=== PATIENT | male | born 1930 | race Asian ===

== ENCOUNTER 2016-11-26 02:25 | Inpatient (IN) | payer OTHER ==
[~2016-11-26] VITALS: Ht 172.7 cm; Wt 50.0 kg
[2016-11-26 02:40] VITALS: BP 189/97
[2016-11-26] MEDS ORDERED: HYDR100T79 PO (03:27)
[2016-11-26] MEDS ORDERED: FAMO-90 PO (03:27)
[2016-11-26] MEDS ORDERED: VITD1000 PO (03:27)
[2016-11-26] MEDS ORDERED: IRON65TA10 PO (03:27)
[2016-11-26] MEDS ORDERED: SODI650T2 PO (03:27)
[2016-11-26] MEDS ORDERED: ETHA400T24 PO (03:27)
[2016-11-26] MEDS ORDERED: VITB6I PO (03:27)
[2016-11-26] MEDS ORDERED: [UNRECOGNIZED DRUG - CODE] PO (03:27)
[2016-11-26] MEDS ORDERED: ASCO500T45 PO (03:27)
[2016-11-26] MEDS ORDERED: AMLO5TAB PO (03:27)
[2016-11-26] MEDS ORDERED: [UNRECOGNIZED DRUG - CODE] PO (03:27)
[2016-11-26] MEDS ORDERED: CARV6.25 PO (03:27)
[2016-11-26] MEDS ORDERED: RIFA150C2 PO (03:27)
[2016-11-26 04:00] VITALS: BP 139/75
[2016-11-26] MEDS ORDERED: NACL 0.9% 1,000 ML IV SCH ×2 (05:49→13:20)
[2016-11-26] MEDS ORDERED: ONDANSETRON 4 MG/2 ML VIAL IVP PRN (05:50)
[2016-11-26] MEDS ORDERED: LORazepam 2 MG/ML VIAL IVP PRN (05:50)
[2016-11-26] MEDS ORDERED: ACETAMINOPHEN 325 MG TAB PO PRN (05:50)
[2016-11-26] MEDS ORDERED: HYDROcodone/APAP 5/325 MG 1 TAB TAB PO PRN (05:50)
[2016-11-26] MEDS ORDERED: MORPHINE SULFATE 2 MG/ML SYR IVP PRN (05:50)
[2016-11-26] MEDS ORDERED: VANCOMYCIN PER PHARMACY MC PRN (06:00)
[2016-11-26] MEDS: ALBUTEROL 0.083% 2.5 MG/3 ML NEBU IH SCH ×3 (07:00→19:59)
[2016-11-26 07:18] LABS: BASOPHILS % (AUTO) 0.3 % (0.0-2.0); EOSINOPHILS # (AUTO) 0.5 K/uL (0-0.4); EOSINOPHILS % (AUTO) 4.7 % (0.0-4.0); HEMATOCRIT 27.8 % (36-52); LYMPHOCYTES # (AUTO) 0.8 K/uL (2.0-11.5); LYMPHOCYTES % (AUTO) 7.6 % (20.5-51.1); MEAN CORPUSCULAR HEMOGLOBIN 30 pg (27-31); MEAN CORPUSCULAR HGB CONC 32 g/dL (33-37); MEAN CORPUSCULAR VOLUME 93 fL (80-94); MONOCYTES # (AUTO) 0.9 K/uL (0.8-1.0); MONOCYTES % (AUTO) 8.3 % (1.7-9.3); NEUTROPHILS # (AUTO) 8.9 K/uL (1.8-7.7); NEUTROPHILS % (AUTO) 79.1 % (42.2-75.2); PLATELET COUNT (AUTO) 178 K/uL (140-450); RED BLOOD CELL COUNT(AUTO) 2.98 MIL/uL (4.20-6.10); RED CELL DISTRIBUTION WIDTH 14.1 % (11.6-13.7); WHITE BLOOD COUNT (AUTO) 11.1 K/uL (4.8-10.8)
[2016-11-26 07:27] LABS: ALANINE AMINOTRANSFERASE 11 U/L (12-78); ALBUMIN 2.3 g/dL (3.4-5.0); ALKALINE PHOSPHATASE 71 U/L (46-116); ANION GAP 16.5 (8-16); ASPARTATE AMINOTRANSFERASE 19 U/L (15-37); CARBON DIOXIDE 21.7 mmol/L (21-32); CHLORIDE 109 mmol/L (98-107); CREATININE 2.9 mg/dL (0.6-1.3); GLUCOSE 105 mg/dL (74-106); POTASSIUM 3.2 mmol/L (3.5-5.1); SODIUM SERUM 144 mmol/L (136-145); TOTAL BILIRUBIN 0.4 mg/dL (0.0-1.0); TOTAL PROTEIN, SERUM 7.2 g/dL (6.4-8.2); UREA NITROGEN, BLOOD 39 mg/dL (7-18)
[2016-11-26 07:38] LABS: CREATINE KINASE MB 0.4 ng/mL (0-3.6)
[2016-11-26 08:00] VITALS: BP 150/78
[2016-11-26] MEDS ORDERED: RIFAMPIN 300 MG CAP PO SCH ×2 (09:00→10:00)
[2016-11-26] MEDS ORDERED: AZITHROMYCIN 500 MG in DEXTROSE 5% 250 ML IV SCH (09:00)
[2016-11-26] MEDS ORDERED: PYRAZINAMIDE 500 MG TAB PO SCH (09:00)
[2016-11-26] MEDS ORDERED: ETHAMBUTOL 400 MG TAB PO SCH ×5 (09:00→10:05)
[2016-11-26] MEDS: ENOXAPARIN 40 MG/0.4 ML SYR SUBQ SCH (09:00)
[2016-11-26] MEDS ORDERED: FERROUS SULFATE 325 MG TABEC PO SCH (09:00)
[2016-11-26] MEDS: hydrALAZINE 25 MG TAB PO SCH ×3 (09:27→23:52)
[2016-11-26] MEDS: ASCORBIC ACID 500 MG TAB PO SCH (09:27)
[2016-11-26] MEDS: FAMOTIDINE 20 MG TAB PO SCH ×2 (09:28→21:10)
[2016-11-26] MEDS: ISONIAZID 100 MG TAB PO SCH (09:29)
[2016-11-26] MEDS: FERROUS SULFATE 325 MG TABEC PO SCH ×2 (09:30→21:10)
[2016-11-26] MEDS: amLODIPine 5 MG TAB PO SCH (09:30)
[2016-11-26] MEDS: PYRIDOXINE 50 MG TAB PO SCH (09:30)
[2016-11-26] MEDS: SODIUM BICARBONATE 650 MG TAB PO SCH (09:30)
[2016-11-26] MEDS: CARVEDILOL 6.25 MG TAB PO SCH ×2 (09:30→21:10)
[2016-11-26] MEDS: VITAMIN D 400 IU TAB PO SCH (09:31)
[2016-11-26] MEDS ORDERED: VANCOMYCIN 1GM/DEXT 5% PREMIX 200 ML IV SCH (10:00)
[2016-11-26] MEDS ORDERED: PATIENTS OWN TABLET PO SCH (10:05)
[2016-11-26] MEDS ORDERED: PATIENTS OWN CAPSULE PO SCH (10:20)
[2016-11-26 12:00] VITALS: BP 132/75
[2016-11-26] MEDS ORDERED: KCL 20 MEQ/WATER INJ PREMIX 200 ML IV ONE (13:25)
[2016-11-26 15:51] LABS: APPEARANCE,URINE SL CLOUDY (CLEAR); BILIRUBIN,URINE NEGATIVE (NEGATIVE); BLOOD, URINE 1+ (NEGATIVE); COLOR,URINE YELLOW (YELLOW); LEUKOCYTE ESTERASE ,URINE NEGATIVE (NEGATIVE); NITRITE, URINE NEGATIVE (NEGATIVE); PROTEIN,URINE 2+ (NEGATIVE); UGLUCOSE TRACE (NEGATIVE); UROBILINOGEN,URINE 0.2 EU/dL (0.2 - 1)
[2016-11-26 15:54] LABS: WBC,URINE 0-5 /HPF (0-5)
[2016-11-26 15:55] LABS: BACTERIA,URINE FEW /HPF (None Seen); COARSE GRANULAR CASTS,URINE 0-10 /LPF (None Seen); RBC,URINE 80-100 /HPF (0-5)
[2016-11-26 15:56] LABS: MUCUS,URINE 1+ /LPF (None Seen)
[2016-11-26 16:00] VITALS: BP 131/65
[2016-11-26 19:46] VITALS: BP 149/74
[2016-11-27] VITALS (7 sets, daily range): BP systolic 113–160; BP diastolic 61–78
[2016-11-27] MEDS: ALBUTEROL 0.083% 2.5 MG/3 ML NEBU IH SCH ×4 (01:22→19:17)
[2016-11-27] MEDS ORDERED: AZTREONAM 1,000 MG VIAL ONE (04:26)
[2016-11-27] MEDS: AZTREONAM 500 MG in DEXTROSE 5% 50 ML IV SCH ×3 (04:50→20:29)
[2016-11-27 06:38] LABS: BASOPHILS % (AUTO) 0.4 % (0.0-2.0); EOSINOPHILS # (AUTO) 0.6 K/uL (0-0.4); HEMATOCRIT 23.7 % (36-52); HEMOGLOBIN 7.7 g/dL (12.0-18.0); LYMPHOCYTES # (AUTO) 0.7 K/uL (2.0-11.5); LYMPHOCYTES % (AUTO) 6.7 % (20.5-51.1); MEAN CORPUSCULAR HEMOGLOBIN 31 pg (27-31); MEAN CORPUSCULAR HGB CONC 32 g/dL (33-37); MEAN CORPUSCULAR VOLUME 94 fL (80-94); MONOCYTES # (AUTO) 0.8 K/uL (0.8-1.0); NEUTROPHILS # (AUTO) 7.9 K/uL (1.8-7.7); NEUTROPHILS % (AUTO) 78.9 % (42.2-75.2); PLATELET COUNT (AUTO) 179 K/uL (140-450); RED BLOOD CELL COUNT(AUTO) 2.51 MIL/uL (4.20-6.10); RED CELL DISTRIBUTION WIDTH 13.7 % (11.6-13.7)
[2016-11-27] MEDS: hydrALAZINE 25 MG TAB PO SCH ×3 (06:39→23:55)
[2016-11-27 06:46] LABS: CALCIUM 8.8 mg/dL (8.5-10.1); CARBON DIOXIDE 21.8 mmol/L (21-32); CHLORIDE 112 mmol/L (98-107); GLUCOSE 100 mg/dL (74-106); POTASSIUM 3.8 mmol/L (3.5-5.1); SODIUM SERUM 144 mmol/L (136-145); UREA NITROGEN, BLOOD 40 mg/dL (7-18)
[2016-11-27 06:59] LABS: PHOSPHORUS 2.8 mg/dL (2.5-4.9); THYROID STIMULATING HORMONE 0.83 uIU/mL (0.34-3.76); URIC ACID 8.5 mg/dL (2.6-7.2)
[2016-11-27 07:00] LABS: CREATINE KINASE MB 0.2 ng/mL (0-3.6)
[2016-11-27] MEDS: FERROUS SULFATE 325 MG TABEC PO SCH ×2 (08:14→21:56)
[2016-11-27] MEDS: VITAMIN D 400 IU TAB PO SCH (08:15)
[2016-11-27] MEDS: SODIUM BICARBONATE 650 MG TAB PO SCH (08:15)
[2016-11-27] MEDS: ASCORBIC ACID 500 MG TAB PO SCH (08:15)
[2016-11-27] MEDS: FAMOTIDINE 20 MG TAB PO SCH ×2 (08:16→21:56)
[2016-11-27] MEDS: amLODIPine 5 MG TAB PO SCH (08:16)
[2016-11-27] MEDS: CARVEDILOL 6.25 MG TAB PO SCH ×2 (08:16→21:56)
[2016-11-27] MEDS: ENOXAPARIN 40 MG/0.4 ML SYR SUBQ SCH (08:24)
[2016-11-27] MEDS: ISONIAZID 100 MG TAB PO SCH (08:34)
[2016-11-27] MEDS: PYRIDOXINE 50 MG TAB PO SCH (08:34)
[2016-11-27] MEDS: RIFAMPIN 300 MG CAP PO SCH (08:34)
[2016-11-27] MEDS ORDERED: ETHAMBUTOL 400 MG TAB PO SCH (09:00)
[2016-11-27] MEDS ORDERED: PATIENTS OWN CAPSULE PO SCH (09:00)
[2016-11-27] MEDS: AZITHROMYCIN 250 MG in DEXTROSE 5% 250 ML IV SCH (09:17)
[2016-11-27] MEDS: ETHAMBUTOL 100 MG PO SCH (09:18)
[2016-11-28] MEDS: ALBUTEROL 0.083% 2.5 MG/3 ML NEBU IH SCH ×4 (00:26→19:02)
[2016-11-28 00:41] VITALS: BP 123/68
[2016-11-28 04:38] VITALS: BP 131/72
[2016-11-28] MEDS: AZTREONAM 500 MG in DEXTROSE 5% 50 ML IV SCH ×3 (05:07→20:55)
[2016-11-28 06:01] LABS: ANION GAP 14.9 (8-16); CARBON DIOXIDE 21.4 mmol/L (21-32); CHLORIDE 112 mmol/L (98-107); GLUCOSE 92 mg/dL (74-106); POTASSIUM 3.3 mmol/L (3.5-5.1); SODIUM SERUM 145 mmol/L (136-145); UREA NITROGEN, BLOOD 38 mg/dL (7-18)
[2016-11-28 06:07] LABS: HEMATOCRIT 24.7 % (36-52); HEMOGLOBIN 7.7 g/dL (12.0-18.0); MEAN CORPUSCULAR HEMOGLOBIN 29 pg (27-31); MEAN CORPUSCULAR HGB CONC 31 g/dL (33-37); MEAN CORPUSCULAR VOLUME 94 fL (80-94); PLATELET COUNT (AUTO) 171 K/uL (140-450); RED BLOOD CELL COUNT(AUTO) 2.62 MIL/uL (4.20-6.10); RED CELL DISTRIBUTION WIDTH 14.1 % (11.6-13.7); WHITE BLOOD COUNT (AUTO) 7.4 K/uL (4.8-10.8)
[2016-11-28 06:35] LABS: BAND % (MANUAL) 3 % (0-8); EOSINOPHILS % (MANUAL) 14 % (0-4); LYMPHOCYTES % (MANUAL) 11 % (20-46); MONOCYTES % (MANUAL) 2 % (5-12); NEUTROPHILS % (MANUAL) 70 (43-65)
[2016-11-28 08:00] VITALS: BP 138/66
[2016-11-28] MEDS: amLODIPine 5 MG TAB PO SCH (08:08)
[2016-11-28] MEDS: PYRIDOXINE 50 MG TAB PO SCH (08:15)
[2016-11-28] MEDS: FAMOTIDINE 20 MG TAB PO SCH ×2 (08:16→20:56)
[2016-11-28] MEDS: RIFAMPIN 300 MG CAP PO SCH (08:17)
[2016-11-28] MEDS: ISONIAZID 100 MG TAB PO SCH (08:17)
[2016-11-28] MEDS: SODIUM BICARBONATE 650 MG TAB PO SCH (08:18)
[2016-11-28] MEDS: CARVEDILOL 6.25 MG TAB PO SCH ×2 (08:18→20:56)
[2016-11-28] MEDS: FERROUS SULFATE 325 MG TABEC PO SCH ×2 (08:20→20:56)
[2016-11-28] MEDS: VITAMIN D 400 IU TAB PO SCH (08:20)
[2016-11-28] MEDS: hydrALAZINE 25 MG TAB PO SCH ×3 (08:21→20:56)
[2016-11-28] MEDS: ASCORBIC ACID 500 MG TAB PO SCH (08:21)
[2016-11-28] MEDS: FUROSEMIDE 20 MG/2 ML VIAL IVP SCH (08:22)
[2016-11-28] MEDS: AZITHROMYCIN 250 MG in DEXTROSE 5% 250 ML IV SCH (08:23)
[2016-11-28] MEDS: ETHAMBUTOL 100 MG PO SCH (08:23)
[2016-11-28 12:00] VITALS: BP 139/71
[2016-11-28] MEDS ORDERED: POTASSIUM CHLORIDE 10 MEQ TABER PO SCH (13:19)
[2016-11-28 16:00] VITALS: BP 132/65
[2016-11-28 20:00] VITALS: BP 131/68
[2016-11-29] VITALS: BP 138/77
[2016-11-29] MEDS: ALBUTEROL 0.083% 2.5 MG/3 ML NEBU IH SCH ×3 (00:45→13:30)
[2016-11-29 04:00] VITALS: BP 144/71
[2016-11-29] MEDS: AZTREONAM 500 MG in DEXTROSE 5% 50 ML IV SCH ×2 (04:36→12:13)
[2016-11-29] MEDS: hydrALAZINE 25 MG TAB PO SCH ×2 (04:37→12:13)
[2016-11-29 06:49] LABS: HEPATITIS B SURFACE ANTIGEN Negative (Negative); HEPATITIS C VIRUS ANTIBODY <0.1 s/co ratio (0.0-0.9); PROSTATE SPECIFIC AG TOTAL 0.1 ng/mL (0.0-4.0)
[2016-11-29 07:58] VITALS: BP 140/73
[2016-11-29] MEDS ORDERED: CHOLECALCIFEROL 1,000 IU TAB PO SCH (09:00)
[2016-11-29] MEDS: ETHAMBUTOL 100 MG PO SCH (09:37)
[2016-11-29] MEDS: ASCORBIC ACID 500 MG TAB PO SCH (09:38)
[2016-11-29] MEDS: FERROUS SULFATE 325 MG TABEC PO SCH (09:38)
[2016-11-29] MEDS: FAMOTIDINE 20 MG TAB PO SCH (09:38)
[2016-11-29] MEDS: ISONIAZID 100 MG TAB PO SCH (09:38)
[2016-11-29] MEDS: SODIUM BICARBONATE 650 MG TAB PO SCH (09:38)
[2016-11-29] MEDS: PYRIDOXINE 50 MG TAB PO SCH (09:39)
[2016-11-29] MEDS: amLODIPine 5 MG TAB PO SCH (09:39)
[2016-11-29] MEDS: RIFAMPIN 300 MG CAP PO SCH (09:39)
[2016-11-29] MEDS: FUROSEMIDE 20 MG/2 ML VIAL IVP SCH (09:44)
[2016-11-29] MEDS: AZITHROMYCIN 250 MG in DEXTROSE 5% 250 ML IV SCH (09:44)
[2016-11-29] MEDS: CARVEDILOL 6.25 MG TAB PO SCH (09:45)
[2016-11-29 12:00] VITALS: BP 124/55
[2016-11-29] MEDS ORDERED: RIFA150C2 PO (12:27)
[2016-11-29 15:11] VITALS: BP 117/49
[2016-11-29 16:00] VITALS: BP 117/49
== END 2016-11-29 17:57 | DRG 137 ==
LOC: MTU 02:25
PROVIDERS: ADMIT Hospitalist; ATTEND Hospitalist
DX: J15.0 Pneumonia due to Klebsiella pneumoniae (principal); G93.41 Metabolic encephalopathy; N18.4 Chronic kidney disease, stage 4 (severe); I13.0 Hypertensive heart and chronic kidney disease with heart failure and stage 1 through stage 4 chronic kidney disease, or unspecified chronic kidney disease; I50.9 Heart failure, unspecified; D64.9 Anemia, unspecified; A15.0 Tuberculosis of lung; E44.1 Mild protein-calorie malnutrition; E87.6 Hypokalemia; Z85.048 Personal history of other malignant neoplasm of rectum, rectosigmoid junction, and anus; Z87.891 Personal history of nicotine dependence; Z88.1 Allergy status to other antibiotic agents; Z88.0 Allergy status to penicillin; Z88.2 Allergy status to sulfonamides; Z86.11 Personal history of tuberculosis; Z87.01 Personal history of pneumonia (recurrent); Z92.3 Personal history of irradiation; Z68.1 Body mass index [BMI] 19.9 or less, adult
CPT/HCPCS: 36415; 70450; 71010; 71020; 76770; 80048; 80053; 80202; 81001; 82550; 82553; 83735; 83880; 84100; 84154; 84443; 84484; 84550; 85025; 86803; 87040; 87070; 87081; 87116; 87186; 87190; 87205; 87206; 87340; 89220; 92610; 94640; 97110; 97140; 97799; J0456; J1644; J1650; J1940; J3480; J3490; J7030; J7060; J7613; Q0092